=== PATIENT | female | born 1960 | race Caucasian/White ===

== ENCOUNTER 2016-11-29 06:12 | Inpatient (IN) | payer OTHER ==
[~2016-11-29 06:12] MED LIST: MORPHINE SULFATE 15 MG TABLET.SA PO PRN; RINGER'S SOLUTION,LACTATED 1,000 ML IV PRN; ROPIVACAINE HCL/PF 100 MG, EPINEPHrine 0.2 MG, KETOROLAC TROMETHAMINE 30 MG in NORMAL S... IJ PRN; TRANEXAMIC ACID 1,000 MG in NORMAL SALINE 100 ML IV PRN; ceFAZolin SODIUM 1 GM VIAL IV PRN
[2016-11-29] MEDS ORDERED: RINGER'S SOLUTION,LACTATED 1,000 ML IV ONE ×3 (08:00→10:25)
[2016-11-29] MEDS ORDERED: MAG HYDROX/ALUMINUM HYD/SIMETH 30 ML UDC PO PRN (09:50)
[2016-11-29] MEDS ORDERED: ONDANSETRON HCL/PF 2 MG/ML VIAL IV PRN (09:50)
[2016-11-29] MEDS ORDERED: diphenhydrAMINE HCL 50 MG/ML VIAL IV PRN (09:50)
[2016-11-29] MEDS ORDERED: PROMETHAZINE HCL 5 MG in DEXTROSE 5 % IN WATER 50 ML IV PRN ×2 (09:50)
[2016-11-29] MEDS ORDERED: MAGNESIUM HYDROXIDE 30 ML UDC PO PRN (09:50)
[2016-11-29] MEDS ORDERED: ACETAMINOPHEN 500 MG TABLET PO PRN (09:50)
[2016-11-29] MEDS ORDERED: ZOLPIDEM TARTRATE 5 MG TABLET PO PRN (09:50)
[2016-11-29] MEDS ORDERED: ALPRAZolam 0.5 MG TABLET PO PRN (09:53)
--- NOTE | 2016-11-29 10:01 | OR ---
Operative Report - Dictated Report Narrative: Date: 11/29/2016 Preoperative diagnosis: Right Knee degenerative joint disease. Postoperative diagnosis: Right Knee degenerative joint disease. Procedure: Right Total knee arthroplasty. Surgeon: Kevin Duong M.D. Technical Planner: Dionicio Arnold PA-C Anesthesia: Spinal with regional block and local periarticular joint injection. Complications: None Specimens: Bone for disposal. Estimated blood loss: Minimal. Tourniquet time: 85 Minutes at 350 millimeters of mercury. Retained implants: Depuy Attune size 6 right lugged cemented posterior stabilized femoral component. Size 6 fixed-bearing cemented tibial platform. 6 by 5 millimeter posterior stabilized cross-linked tibial insert. 38 millimeter medialized patella button. Indications: Ms. Valencia is a 56-year-old female who has advanced bilateral knee arthrosis undergoing staged bilateral total knee arthroplasty. She is here today for her right knee she's been doing with prolonged period of time. This patient was followed in my clinic for period of time with significant complaints of right knee pain consistent with arthritic changes. She had failed conservative measures including, but not limited to, activity modification, passage of time, medications, and other conservative measures. Patient wished to proceed with surgical treatment. The risks, benefits, and alternatives were discussed in clinic. The risks of , blood clots, bleeding, infection, nerve/tendon blood vessel/ injury, malposition of components, intraoperative fracture, postoperative limited range of motion, persistent pain, failure of components, and need for additional procedures. Patient wished to proceed consent was obtained after answering all questions. Procedure: After marking the correct extremity on the floor, the patient was taken to the operating room. A timeout was performed. IV antibiotics consisting of Ancef were administered prior to the procedure. A regional followed by spinal anesthetic was induced by anesthesia, per my request, on the operative table with all bony prominences well-padded. Griffin catheter was placed, and a bump was placed under the operative side buttock. SCDs and JUSTUS hose were utilized on the nonoperative leg. A well-padded tourniquet was applied to the operative thigh. The operative leg was then pre-scrubbed with alcoho,l prepped, and draped in a standard sterile fashion. After exsanguinating the extremity with an Esmarch bandage, the tourniquet was inflated. After marking out the anterior knee for standard incision centered over the patella, the skin was incised and dissected down to the joint retinaculum. The joint retinaculum was marked out as well as the horizontal axis of the patella, and a standard medial parapatellar arthrotomy was then made. The most proximal aspect of the quadriceps tendon and the patella tendon insertion were protected from release. A partial synovectomy was performed as well as a resection of the infrapatellar fat pad. The distal femoral fat pad proximal to the trochlea was also resected using cautery. The soft tissues were elevated off the medial aspect of the proximal tibia using a Juarez elevator ensuring that we did not transect the medial collateral ligament. Upon initial evaluation range of motion was approximately 0 degrees to 130 degrees of flexion. There were signs of advanced arthrosis in the medial, lateral, and patellofemoral joint spaces. There were large marginal osteophytes which were removed with a rongeur. The knee was hyperflexed and the patella was tucked laterally. Protecting the surrounding soft tissues with Homans, an entry drill was placed down the femoral canal using Whitesides line for guidance into the entry point. The intramedullary femoral alignment kenan was utilized in order to cut the distal femur in 5 degrees of valgus resecting 10 millimeters of bone. Next the distal femur was sized to a size 6. A posterior referencing guide was utilized to place the distal femoral cutting block in 3 degrees of external rotation. This was pinned into place. The rotation was confirmed both visually and based on anatomic landmarks. The 4 in 1 cutting jig of the appropriate size was utilized in order to make all bony cuts. The angle wing was used to ensure no notching. Retractors were utilized in order to protect surrounding soft tissues. This cut did not result in any excessive notching. We then cut the box centered over the distal femur. This allowed for resection of the anterior and posterior cruciate ligaments. I then turned my attention to the preparation of the tibia. Using an extra medullary tibial alignment kenan, 2 millimeters of bone was resected off the medial articular surface. This was made perpendicular to the mechanical axis of the joint with the alignment kenan centered over the ankle mortise. The alignment kenan was checked and was noted to be parallel to the mechanical axis, centered over the medial one third of the tibial tubercle, paralleling the anterior surface of the tibia. We then turned our attention to the remaining meniscus and soft tissues. These were removed while protecting the surrounding ligaments and soft tissues. The marginal osteophytes off the anterior, posterior, medial, lateral aspects of the femur and tibia were removed. The tibia was sized out to a size 6. Next the tibia was drilled and punched in an externally rotated position. Next the trial femur and a series of tibial inserts were utilized in order to allow for full extension and maximal flexion. It was found that a 5 millimeter insert gave the best range of motion and stability at multiple flexion points as well as at full extension there was less than 2 mm of gapping both medially and laterally. There is minimal anterior translation with the knee at 90 degrees of flexion and no signs of being able to dislocate the knee. The patella was then prepared. The initial thickness was 23 millimeters. This was reamed down to 13 millimeters parallel to the anterior surface of the patella. It was sized out to a size 38 medialized patella button. This was then drilled and trialed. Without any medial restraint the patella tracked appropriately and did not sublux or dislocate. At this point, it was felt these were the appropriate sized implants, and all trials were removed. The standard periarticular joint injection consisting of ropivacaine, Toradol, and epinephrine were injected into the periarticular joint tissues. The bony surfaces were thoroughly irrigated with a pulsatile- suction saline irrigation device. A bone plug from the prior resected anterior chamfer cut was placed into the drill hole at the distal femur. The bony surfaces were then dried in preparation for placement of the implants. The cement was vacuum mixed per the dental chairside assistant's instructions. The cement was placed on the dry bony surfaces and posterior aspect of the implants. The implants were impacted into place, removing all extruded cement. At this point anesthesia administered tranexamic acid per protocol intravenously. The knee was placed in extension with axial loading with the trial insert while the cement cured. Once the cement cured, all remaining extruded cement was removed. The knee was placed through a range of motion with the trial insert to ensure appropriate range of motion and stability. Final range of motion was approximately 0 to 130 degrees. The knee was again thoroughly irrigated with pulsatile saline lavage. The final polyethylene insert was then impacted into place ensuring no retained soft tissues. The remaining periarticular joint injection was injected. A medium Hemovac drain was placed exiting superior laterally. The knee was then placed over a triangle and the arthrotomy was closed with interrupted #1 Vicryl after thoroughly irrigating the joint. The deep and subcutaneous tissues were closed with interrupted oh and 3-0 Vicryl respectively. Skin was closed with a running subcutaneous 3-0 Monocryl and Prineo Dermabond dressing. 4 x 4's, Sof-Rol, and a full leg Geoff wrap were applied. All sponge, needle, blade, and instrument counts were correct prior to closing the wounds. Postoperative condition: The patient was awoken and transferred to the postanesthesia care unit in stable condition. Plan is to be admitted to the inpatient medical/surgical floor postoperatively for 24 hours of IV antibiotics , physical therapy, occupational therapy, and medical comanagement. Patient will be weightbearing as tolerated with range of motion as tolerated. DVT prophylaxis will be with SCDs, JUSTUS hose, and pharmacological anticoagulation. Anticipated hospital stay is approximately 2-4 days.
--- NOTE | 2016-11-29 10:29 | OR ---
Anesthesia Procedure Note - Anesthesia Procedure Note Narrative: Vital Signs - Last Taken Temp 36.6 C 11/29/16 10:15 Pulse 54 L 11/29/16 10:20 Resp 16 11/29/16 10:20 BP 106/50 11/29/16 10:20 Pulse Ox 97 11/29/16 10:20 O2 Oxygen Delivery Method Nasal Cannula 11/29/16 10:26 ANESTHESIA PROCEDURE NOTE Date of procedure: 11/29/2016. Time of procedure: . Performed by: Shine Landa CRNA Paint Dipper: Delilah Villegas RN . Preprocedure diagnosis: Right knee degenerative disc disease. Femoral block for postop analgesia.. Post procedure diagnosis: Same. Procedure: Right femoral nerve block Indications: Postoperative analgesia. Findings: Patient brought to operating room #4 placed in supine position. Patient was sedated. One mL of 1% Xylocaine was injected in the tissue over the femoral artery. Ultrasound-guided right femoral nerve block performed with a 22-gauge Stimuplex regional block needle. ChloraPrep was utilized sterilize right femoral area. A total of 30 mL of 0.25% Marcaine with epinephrine 1 200, 000 was injected. Images retained and radiology database. Needle was removed intact. EBL: Minimal. Fluids: N/A. Specimen: N/A. Post procedure condition: The patient tolerated the procedure well. No complications were noted. Thank you for this consultation Shine Landa CRNA
[2016-11-29] MEDS: KETOROLAC TROMETHAMINE 15 MG/ML VIAL IV SCH ×3 (11:00→23:11)
[2016-11-29] MEDS: DEXTROSE 5%-LACTATED RINGERS 1,000 ML IV PRN ×2 (11:02→19:02)
[2016-11-29] MEDS: ceFAZolin SODIUM 1 GM in DEXTROSE 5 % IN WATER 100 ML IV SCH ×6 (12:43→23:10)
[2016-11-29] MEDS: oxyCODONE HCL/ACETAMINOPHEN 1 TAB TABLET PO PRN ×2 (13:23→17:47)
[2016-11-29] MEDS: traZODone HCL 50 MG TABLET PO SCH (21:08)
[2016-11-29] MEDS: MORPHINE SULFATE 15 MG TABLET.SA PO SCH (21:08)
[2016-11-29] MEDS: SENNOSIDES/DOCUSATE SODIUM 1 TAB TABLET PO SCH (21:09)
[2016-11-29] MEDS: FLUoxetine HCL 10 MG CAPSULE PO SCH (21:16)
[2016-11-29] MEDS: METOPROLOL TARTRATE 50 MG TABLET PO SCH (21:17)
[2016-11-29] MEDS: LISINOPRIL 20 MG TABLET PO SCH (21:17)
[2016-11-30] MEDS: DEXTROSE 5%-LACTATED RINGERS 1,000 ML IV PRN (03:54)
[2016-11-30] MEDS: KETOROLAC TROMETHAMINE 15 MG/ML VIAL IV SCH ×4 (03:54→21:01)
[2016-11-30 06:02] LABS: Hematocrit 32.5 % (37.0-47.0); Hemoglobin 10.2 gm/dL (12.5-16.0); Mean Cell Volume 94.8 fl (78-100); Mean Corpuscular Hemoglobin 29.7 pg (27-31); Mean Corpuscular Hgb Conc 31.4 g/dl (32-36); Mean Platelet Volume 8.2 fl (6.0-9.5); Platelet Count 170 K/mm3 (150-450); Red Blood Count 3.43 M/mm3 (4.2-5.4); Red Cell Distribution Width 12.5 % (11.5-14.0); White Blood Count 9.1 K/mm3 (4.0-10.5)
[2016-11-30 06:13] LABS: Anion Gap 5.8 mmol/L (6.8-13.8); BUN/Creatinine Ratio 17.2 (9.0-21.6); Carbon Dioxide 32.3 mmol/L (24-32.6); Estimated Creat Clear 79.7; Potassium 4.1 mmol/L (3.4-4.6)
[2016-11-30] MEDS: oxyCODONE HCL/ACETAMINOPHEN 1 TAB TABLET PO PRN ×3 (06:53→22:05)
[2016-11-30] MEDS: LEVOTHYROXINE SODIUM 175 MCG TABLET PO SCH (07:01)
--- NOTE | 2016-11-30 07:59 | PN ---
Subjective - Date and Time Seen Date: 11/30/16 Time: 07:55 Subjective Narrative: Subjective: Reports no concerns or pain. Was able to walk in the [place] with therapy. Pain is well-controlled. Voiding without any complications. Tolerating by mouth intake. Denies any nausea or vomiting. Denies calf pain. Slept well. Physical exam: Alert and oriented to person, place and time Right lower Extremity: Palpable dorsalis pedis pulse. Sensation grossly intact to light touch. Dressings clean and dry. Able to flex and extend ankle and toes. No excessive drainage. Calf and thigh are soft and nontender. Assessment: Postop day 1 status post right total knee arthroplasty. Plan: Continue with physical and occupational therapy weightbearing as tolerated. Continue with anticoagulation. 24 hours postoperative prophylactic antibiotics. Pain control with goal to rely on oral medications. Continue bowel regimen. Will need 6 weeks with walker or assitive device to protect joint while ambulating during the recovery process. Plan to proceed with left total knee arthroplasty tomorrow. Discontinue drain. Repeat labs in a.m. Objective - Vitals Vitals: Last Vital Signs Temp 36.5 C 11/29/16 22:42 Pulse 58 L 11/30/16 00:45 Resp 18 11/30/16 00:45 BP 87/40 11/30/16 00:35 Pulse Ox 97 11/30/16 00:45 - Abnormal Lab Findings Abnormal Lab Findings: Abnormal Lab Results 11/30/16 11/30/16 Range/Units 05:55 05:55 RBC 3.43 L (4.2-5.4) M/mm3 Hgb 10.2 L (12.5-16.0) gm/dL Hct 32.5 L (37.0-47.0) % MCHC 31.4 L (32-36) g/dl Anion Gap 5.8 L (6.8-13.8) mmol/L - Exam Constitutional: Present: Alert, Oriented x3 Cauti Physician Documentation - Urinary Catheter Management Urethral (Griffin) Urethral Indwelling: Yes Reason for Continuing Indwelling Catheter: Surgical Procedure Date of Insertion: 11/29/16 Time of Insertion: 08:00 Assessment/Plan - Problems/Diagnosis (1) Acute blood loss anemia Problem: Acute (2) Status post total right knee replacement Problem: Acute (3) Anxiety Problem: Chronic (4) CAD (coronary artery disease) Problem: Chronic (5) Hypothyroid Problem: Chronic (6) Impaired fasting glucose Problem: Chronic (7) GERD (gastroesophageal reflux disease) Problem: Chronic (8) Hypertension Problem: Chronic (9) B12 deficiency Problem: Chronic (10) Sleep apnea Problem: Chronic (11) Factor V Leiden Problem: Chronic (12) Hyperlipidemia Problem: Chronic
[2016-11-30] MEDS ORDERED: ceFAZolin SODIUM 1 GM VIAL IV PRN (08:22)
[2016-11-30] MEDS: ENOXAPARIN SODIUM 40 MG/0.4 ML SYRG SC SCH (08:45)
[2016-11-30] MEDS: LACTOBACILLUS ACIDOPHILUS 100 CAP BTL PO SCH (08:56)
[2016-11-30] MEDS: OMEGA-3 FATTY ACIDS 1 CAP CAPSULE PO SCH (08:57)
[2016-11-30] MEDS: CALCIUM CARBONATE/VITAMIN D3 1 TAB TABLET PO SCH (08:57)
[2016-11-30] MEDS ORDERED: CALCIUM CARBONATE PO SCH (09:00)
[2016-11-30] MEDS ORDERED: [UNRECOGNIZED DRUG - OTHER] PO SCH (09:00)
[2016-11-30] MEDS ORDERED: VITAMIN D3 PO SCH (09:00)
[2016-11-30] MEDS: HYDROCHLOROTHIAZIDE 25 MG TABLET PO SCH (09:05)
[2016-11-30] MEDS: MORPHINE SULFATE 15 MG TABLET.SA PO SCH ×2 (09:05→20:45)
[2016-11-30] MEDS: METOPROLOL TARTRATE 50 MG TABLET PO SCH ×2 (09:05→20:47)
[2016-11-30] MEDS: LISINOPRIL 20 MG TABLET PO SCH ×2 (09:05→20:51)
[2016-11-30] MEDS: FLUoxetine HCL 10 MG CAPSULE PO SCH (20:46)
[2016-11-30] MEDS: traZODone HCL 50 MG TABLET PO SCH (20:46)
[2016-11-30] MEDS: SENNOSIDES/DOCUSATE SODIUM 1 TAB TABLET PO SCH (20:46)
[2016-12-01] MEDS: KETOROLAC TROMETHAMINE 15 MG/ML VIAL IV SCH ×4 (03:25→21:50)
[2016-12-01] MEDS ORDERED: ROPIVACAINE HCL/PF 100 MG, EPINEPHrine 0.2 MG, KETOROLAC TROMETHAMINE 30 MG in NORMAL S... IJ PRN (06:00)
[2016-12-01] MEDS ORDERED: RINGER'S SOLUTION,LACTATED 1,000 ML IV PRN (06:00)
[2016-12-01] MEDS ORDERED: ceFAZolin SODIUM 1 GM VIAL IV PRN (06:00)
[2016-12-01] MEDS ORDERED: MORPHINE SULFATE 15 MG TABLET.SA PO PRN (06:00)
[2016-12-01 06:02] LABS: Hematocrit 32.1 % (37.0-47.0); Hemoglobin 10.2 gm/dL (12.5-16.0); Mean Cell Volume 94.4 fl (78-100); Mean Corpuscular Hgb Conc 31.8 g/dl (32-36); Mean Platelet Volume 9.4 fl (6.0-9.5); Platelet Count 190 K/mm3 (150-450); Red Cell Distribution Width 12.5 % (11.5-14.0); White Blood Count 8.3 K/mm3 (4.0-10.5)
[2016-12-01 06:05] LABS: Anion Gap 5.9 mmol/L (6.8-13.8); BUN/Creatinine Ratio 15.3 (9.0-21.6); Calcium * 8.3 mg/dL (7.9-10.9); Carbon Dioxide 33.5 mmol/L (24-32.6); Estimated Creat Clear 81.6; Potassium 4.4 mmol/L (3.4-4.6)
[2016-12-01] MEDS: LEVOTHYROXINE SODIUM 175 MCG TABLET PO SCH (07:04)
[2016-12-01] MEDS ORDERED: RINGER'S SOLUTION,LACTATED 1,000 ML IV ONE ×3 (08:43→10:00)
[2016-12-01] MEDS: TRANEXAMIC ACID 1,000 MG in NORMAL SALINE 100 ML IV PRN ×2 (08:43→09:10)
[2016-12-01] MEDS ORDERED: HYDROmorphone HCL 2 MG/ML VIAL IV ONE (08:50)
--- NOTE | 2016-12-01 09:58 | OR ---
Operative Report - Dictated Report Narrative: Date: 12/01/2016 Preoperative diagnosis: Left Knee degenerative joint disease. Postoperative diagnosis: Left Knee degenerative joint disease. Procedure: Left Total knee arthroplasty. Surgeon: Kevin Duong M.D. Phlebotomy Program Coordinator: Dionicio Arnold PA-C Anesthesia: Spinal with regional block and local periarticular joint injection. Complications: None Specimens: Bone for disposal. Estimated blood loss: Minimal. Tourniquet time: 80 Minutes at 350 millimeters of mercury. Retained implants: Depuy Attune size 7 left lugged cemented posterior stabilized femoral component. Size 6 fixed-bearing cemented tibial platform. 7 by 7 millimeter posterior stabilized cross-linked tibial insert. 38 millimeter medialized patella button. Indications: Ms. Valencia is a 56-year-old female who presented with a right total knee arthroplasty is here today for her left total knee arthroplasty due to persistent long-standing bilateral knee pain. This patient was followed in my clinic for period of time with significant complaints of left knee pain consistent with arthritic changes. She had failed conservative measures including, but not limited to, activity modification, passage of time, medications, and other conservative measures. Patient wished to proceed with surgical treatment. The risks, benefits, and alternatives were discussed in clinic. The risks of , blood clots, bleeding, infection, nerve/tendon blood vessel/ injury, malposition of components, intraoperative fracture, postoperative limited range of motion, persistent pain, failure of components, and need for additional procedures. Patient wished to proceed consent was obtained after answering all questions. Procedure: After marking the correct extremity on the floor, the patient was taken to the operating room. A timeout was performed. IV antibiotics consisting of Ancef were administered prior to the procedure. A regional followed by spinal anesthetic was induced by anesthesia, per my request, on the operative table with all bony prominences well-padded. Griffin catheter was placed, and a bump was placed under the operative side buttock. SCDs and JUSTUS hose were utilized on the nonoperative leg. A well-padded tourniquet was applied to the operative thigh. The operative leg was then pre-scrubbed with alcoho,l prepped, and draped in a standard sterile fashion. After exsanguinating the extremity with an Esmarch bandage, the tourniquet was inflated. After marking out the anterior knee for standard incision centered over the patella, the skin was incised and dissected down to the joint retinaculum. The joint retinaculum was marked out as well as the horizontal axis of the patella, and a standard medial parapatellar arthrotomy was then made. The most proximal aspect of the quadriceps tendon and the patella tendon insertion were protected from release. A partial synovectomy was performed as well as a resection of the infrapatellar fat pad. The distal femoral fat pad proximal to the trochlea was also resected using cautery. The soft tissues were elevated off the medial aspect of the proximal tibia using a Juarez elevator ensuring that we did not transect the medial collateral ligament. Upon initial evaluation range of motion was approximately 0 degrees to 130 degrees of flexion. There were signs of advanced arthrosis in the medial, lateral, and patellofemoral joint spaces. There were large marginal osteophytes which were removed with a rongeur. The knee was hyperflexed and the patella was tucked laterally. Protecting the surrounding soft tissues with Homans, an entry drill was placed down the femoral canal using Whitesides line for guidance into the entry point. The intramedullary femoral alignment kenan was utilized in order to cut the distal femur in 5 degrees of valgus resecting 10 millimeters of bone. Next the distal femur was sized to a size 7. A posterior referencing guide was utilized to place the distal femoral cutting block in 3 degrees of external rotation. This was pinned into place. The rotation was confirmed both visually and based on anatomic landmarks. The 4 in 1 cutting jig of the appropriate size was utilized in order to make all bony cuts. The angle wing was used to ensure no notching. Retractors were utilized in order to protect surrounding soft tissues. This cut did not result in any excessive notching. We then cut the box centered over the distal femur. This allowed for resection of the anterior and posterior cruciate ligaments. I then turned my attention to the preparation of the tibia. Using an extra medullary tibial alignment kenan, 2 millimeters of bone was resected off the medial articular surface. This was made perpendicular to the mechanical axis of the joint with the alignment kenan centered over the ankle mortise. The alignment kenan was checked and was noted to be parallel to the mechanical axis, centered over the medial one third of the tibial tubercle, paralleling the anterior surface of the tibia. We then turned our attention to the remaining meniscus and soft tissues. These were removed while protecting the surrounding ligaments and soft tissues. The marginal osteophytes off the anterior, posterior, medial, lateral aspects of the femur and tibia were removed. The tibia was sized out to a size 6. Next the tibia was drilled and punched in an externally rotated position. Next the trial femur and a series of tibial inserts were utilized in order to allow for full extension and maximal flexion. It was found that a 7 millimeter insert gave the best range of motion and stability at multiple flexion points as well as at full extension there was less than 2 mm of gapping both medially and laterally. There is minimal anterior translation with the knee at 90 degrees of flexion and no signs of being able to dislocate the knee. The patella was then prepared. The initial thickness was 23 millimeters. This was reamed down to 13 millimeters parallel to the anterior surface of the patella. It was sized out to a size 38 medialized patella button. This was then drilled and trialed. Without any medial restraint the patella tracked appropriately and did not sublux or dislocate. At this point, it was felt these were the appropriate sized implants, and all trials were removed. The standard periarticular joint injection consisting of ropivacaine, Toradol, and epinephrine were injected into the periarticular joint tissues. The bony surfaces were thoroughly irrigated with a pulsatile- suction saline irrigation device. A bone plug from the prior resected anterior chamfer cut was placed into the drill hole at the distal femur. The bony surfaces were then dried in preparation for placement of the implants. The cement was vacuum mixed per the grinding machine operator's instructions. The cement was placed on the dry bony surfaces and posterior aspect of the implants. The implants were impacted into place, removing all extruded cement. At this point anesthesia administered tranexamic acid per protocol intravenously. The knee was placed in extension with axial loading with the trial insert while the cement cured. Once the cement cured, all remaining extruded cement was removed. The knee was placed through a range of motion with the trial insert to ensure appropriate range of motion and stability. Final range of motion was approximately 0 to 130 degrees. The knee was again thoroughly irrigated with pulsatile saline lavage. The final polyethylene insert was then impacted into place ensuring no retained soft tissues. The remaining periarticular joint injection was injected. A medium Hemovac drain was placed exiting superior laterally. The knee was then placed over a triangle and the arthrotomy was closed with interrupted #1 Vicryl after thoroughly irrigating the joint. The deep and subcutaneous tissues were closed with interrupted oh and 3-0 Vicryl respectively. Skin was closed with a running subcutaneous 3-0 Monocryl and Prineo Dermabond dressing. 4 x 4's, Sof-Rol, and a full leg Geoff wrap were applied. All sponge, needle, blade, and instrument counts were correct prior to closing the wounds. Postoperative condition: The patient was awoken and transferred to the postanesthesia care unit in stable condition. Plan is to be admitted to the inpatient medical/surgical floor postoperatively for 24 hours of IV antibiotics , physical therapy, occupational therapy, and medical comanagement. Patient will be weightbearing as tolerated with range of motion as tolerated. DVT prophylaxis will be with SCDs, JUSTUS hose, and pharmacological anticoagulation. Anticipated hospital stay is approximately 2-4 days.
--- NOTE | 2016-12-01 10:14 | OR ---
Anesthesia Procedure Note - Anesthesia Procedure Note Date of Service: 12/01/16 Narrative: Vital Signs - Last Taken Temp 36.7 C 12/01/16 08:47 Pulse 52 L 12/01/16 08:47 Resp 18 12/01/16 08:47 BP 99/53 12/01/16 08:47 Pulse Ox 100 12/01/16 08:47 O2 Oxygen Delivery Method Room Air 12/01/16 10:12 ANESTHESIA PROCEDURE NOTE Date of Procedure: 12/01/2016. Time of procedure: 744. Performed by: Polo Diaz CRNA Oil Rig Driller: None. Preprocedure diagnosis: Left knee degenerative joint disease, left total knee arthroplasty. Post procedure diagnosis: Same. Procedure: Left ultrasound guided femoral block for postop analgesia. Indications: The patient is a 56 -year-old female. Findings: See below. Details of the procedure: The tissue over the intended target site was cleansed with ChloraPrep. 1 ml lidocaine 1% was injected to the skin and subcutaneous tissue. Under sterile technique and ultrasound guidance a 21-gauge block needle was inserted to the left femoral nerve. 30 mL's of 0.5% bupivacaine plus epinephrine 1 200,000 was injected after negative aspiration for blood. Spread of local anesthetic around the femoral nerve was observed throughout the injection. The needle was removed intact. No complications were noted. The images were retained in the Hospital medical database . EBL: Minimal. Fluids: N/A. Specimen: N/A. Post procedure condition: The patient tolerated the procedure well. No complications were noted. Thank you for this consultation. Polo Diaz CRNA
[2016-12-01] MEDS: MORPHINE SULFATE 15 MG TABLET.SA PO SCH ×2 (10:55→20:31)
[2016-12-01] MEDS: DEXTROSE 5%-LACTATED RINGERS 1,000 ML IV PRN ×2 (11:31→20:41)
[2016-12-01] MEDS: HYDROmorphone HCL 1 MG/ML DISP.SYRIN IV PRN ×3 (11:38→21:50)
[2016-12-01] MEDS: ceFAZolin SODIUM 1 GM in DEXTROSE 5 % IN WATER 100 ML IV SCH ×6 (11:49→23:02)
[2016-12-01] MEDS: ENOXAPARIN SODIUM 40 MG/0.4 ML SYRG SC SCH (12:53)
[2016-12-01] MEDS: OMEGA-3 FATTY ACIDS 1 CAP CAPSULE PO SCH (13:06)
[2016-12-01] MEDS: CALCIUM CARBONATE/VITAMIN D3 1 TAB TABLET PO SCH (13:06)
[2016-12-01] MEDS: METOPROLOL TARTRATE 50 MG TABLET PO SCH ×2 (13:07→20:09)
[2016-12-01] MEDS: LISINOPRIL 20 MG TABLET PO SCH ×2 (13:07→20:09)
[2016-12-01] MEDS: LACTOBACILLUS ACIDOPHILUS 100 CAP BTL PO SCH (13:08)
[2016-12-01] MEDS: HYDROCHLOROTHIAZIDE 25 MG TABLET PO SCH (13:08)
[2016-12-01] MEDS: SENNOSIDES/DOCUSATE SODIUM 1 TAB TABLET PO SCH (20:09)
[2016-12-01] MEDS: FLUoxetine HCL 10 MG CAPSULE PO SCH (20:09)
[2016-12-01] MEDS: traZODone HCL 50 MG TABLET PO SCH (20:16)
[2016-12-01] MEDS: oxyCODONE HCL/ACETAMINOPHEN 1 TAB TABLET PO PRN (22:31)
[2016-12-02] MEDS: KETOROLAC TROMETHAMINE 15 MG/ML VIAL IV SCH ×4 (03:11→23:01)
[2016-12-02] MEDS: oxyCODONE HCL/ACETAMINOPHEN 1 TAB TABLET PO PRN ×5 (03:11→20:36)
[2016-12-02 05:58] LABS: Hematocrit 28.2 % (37.0-47.0); Mean Cell Volume 95.6 fl (78-100); Mean Corpuscular Hemoglobin 30.5 pg (27-31); Mean Corpuscular Hgb Conc 31.9 g/dl (32-36); Mean Platelet Volume 9.4 fl (6.0-9.5); Platelet Count 195 K/mm3 (150-450); Red Blood Count 2.95 M/mm3 (4.2-5.4); Red Cell Distribution Width 12.4 % (11.5-14.0)
[2016-12-02 06:10] LABS: Anion Gap 7.6 mmol/L (6.8-13.8); BUN/Creatinine Ratio 13.7 (9.0-21.6); Carbon Dioxide 31.4 mmol/L (24-32.6)
[2016-12-02] MEDS: LEVOTHYROXINE SODIUM 175 MCG TABLET PO SCH (07:12)
[2016-12-02] MEDS: DEXTROSE 5%-LACTATED RINGERS 1,000 ML IV PRN (07:54)
--- NOTE | 2016-12-02 08:05 | PN ---
Subjective - Date and Time Seen Date: 12/02/16 Time: 08:03 Subjective Narrative: Subjective: She reports cramping last night. She has some weakness and lightheadedness she stood up today. She states her pain is somewhat worse than preop. Voiding without any complications. Tolerating by mouth intake. Denies any nausea or vomiting. Denies calf pain. Physical exam: Alert and oriented to person, place and time Left lower extremity: Drain in place, palpable dorsalis pedis pulse, sensation is intact light touch, dressings are clean and dry, able to flex and extend the ankles and toes, calf is soft. Right lower Extremity: Palpable dorsalis pedis pulse. Sensation grossly intact to light touch. Dressings clean and dry. Able to flex and extend ankle and toes. No excessive drainage. Calf and thigh are soft and nontender. Assessment: Postop day 3 status post right total knee arthroplasty, postop day 1 status post left total knee arthroplasty. Plan: Continue with physical and occupational therapy weightbearing as tolerated. Continue with anticoagulation. 24 hours postoperative prophylactic antibiotics. Pain control with goal to rely on oral medications. Continue bowel regimen. Will need 6 weeks with walker or assitive device to protect joint while ambulating during the recovery process. We will hold her blood pressure medications that she is hypotensive this morning. We also discussed that her hemoglobin is an acceptable level but if she continues to have lightheadedness we will consider transfusion. She was restarted on fluids in order to assist with her fluid load. Discontinue drain. Repeat labs in a.m. Objective - Vitals Vitals: Last Vital Signs Temp 36.7 C 12/02/16 06:49 Pulse 51 L 12/02/16 06:49 Resp 18 12/02/16 06:49 BP 88/38 12/02/16 06:49 Pulse Ox 96 12/02/16 06:49 - Abnormal Lab Findings Abnormal Lab Findings: Abnormal Lab Results 12/02/16 12/02/16 Range/Units 05:49 05:49 RBC 2.95 L (4.2-5.4) M/mm3 Hgb 9.0 L (12.5-16.0) gm/dL Hct 28.2 L (37.0-47.0) % MCHC 31.9 L (32-36) g/dl Est GFR (Non-Af Amer) 59 L (60-130) mL/min [facility] Physician Documentation - Urinary Catheter Management Urethral (Griffin) Urethral Indwelling: Yes Date of Insertion: 11/29/16 Time of Insertion: 08:00 Date of Removal: 12/02/16 Time of Removal: 07:15 Assessment/Plan - Problems/Diagnosis (1) Acute blood loss anemia Problem: Acute (2) Status post total right knee replacement Problem: Acute (3) Anxiety Problem: Chronic (4) CAD (coronary artery disease) Problem: Chronic (5) Hypothyroid Problem: Chronic (6) Impaired fasting glucose Problem: Chronic (7) GERD (gastroesophageal reflux disease) Problem: Chronic (8) Hypertension Problem: Chronic (9) B12 deficiency Problem: Chronic (10) Sleep apnea Problem: Chronic (11) Factor V Leiden Problem: Chronic (12) Hyperlipidemia Problem: Chronic
[2016-12-02] MEDS: HYDROCHLOROTHIAZIDE 25 MG TABLET PO SCH (08:49)
[2016-12-02] MEDS: LACTOBACILLUS ACIDOPHILUS 100 CAP BTL PO SCH (08:49)
[2016-12-02] MEDS: MORPHINE SULFATE 15 MG TABLET.SA PO SCH ×2 (08:49→20:34)
[2016-12-02] MEDS: CALCIUM CARBONATE/VITAMIN D3 1 TAB TABLET PO SCH (08:49)
[2016-12-02] MEDS: OMEGA-3 FATTY ACIDS 1 CAP CAPSULE PO SCH (08:50)
[2016-12-02] MEDS: LISINOPRIL 20 MG TABLET PO SCH ×2 (08:50→20:31)
[2016-12-02] MEDS: ENOXAPARIN SODIUM 40 MG/0.4 ML SYRG SC SCH (08:51)
[2016-12-02] MEDS: HYDROmorphone HCL 1 MG/ML DISP.SYRIN IV PRN ×2 (10:16→14:36)
[2016-12-02] MEDS: SENNOSIDES/DOCUSATE SODIUM 1 TAB TABLET PO SCH (20:31)
[2016-12-02] MEDS: traZODone HCL 50 MG TABLET PO SCH (20:31)
[2016-12-02] MEDS: FLUoxetine HCL 10 MG CAPSULE PO SCH (20:32)
[2016-12-02] MEDS: METOPROLOL TARTRATE 50 MG TABLET PO SCH (23:00)
[2016-12-03] MEDS: KETOROLAC TROMETHAMINE 15 MG/ML VIAL IV SCH (03:00)
[2016-12-03] MEDS: oxyCODONE HCL/ACETAMINOPHEN 1 TAB TABLET PO PRN ×4 (05:53→20:53)
[2016-12-03 06:14] LABS: Hematocrit 26.7 % (37.0-47.0); Hemoglobin 8.8 gm/dL (12.5-16.0); Mean Cell Volume 94.3 fl (78-100); Mean Corpuscular Hemoglobin 31.1 pg (27-31); Mean Platelet Volume 9.5 fl (6.0-9.5); Platelet Count 190 K/mm3 (150-450); Red Blood Count 2.83 M/mm3 (4.2-5.4); Red Cell Distribution Width 12.6 % (11.5-14.0); White Blood Count 9.9 K/mm3 (4.0-10.5)
[2016-12-03 06:22] LABS: Anion Gap 10.5 mmol/L (6.8-13.8); BUN/Creatinine Ratio 15.2 (9.0-21.6); Calcium * 8.1 mg/dL (7.9-10.9); Carbon Dioxide 29.6 mmol/L (24-32.6); Estimated Creat Clear 87.8; Potassium 4.1 mmol/L (3.4-4.6)
[2016-12-03] MEDS: LEVOTHYROXINE SODIUM 175 MCG TABLET PO SCH (07:24)
[2016-12-03] MEDS: ENOXAPARIN SODIUM 40 MG/0.4 ML SYRG SC SCH (10:08)
[2016-12-03] MEDS: MORPHINE SULFATE 15 MG TABLET.SA PO SCH ×2 (10:08→20:49)
[2016-12-03] MEDS: LISINOPRIL 20 MG TABLET PO SCH ×2 (10:08→20:50)
[2016-12-03] MEDS: LACTOBACILLUS ACIDOPHILUS 100 CAP BTL PO SCH (10:08)
[2016-12-03] MEDS: CALCIUM CARBONATE/VITAMIN D3 1 TAB TABLET PO SCH (10:09)
[2016-12-03] MEDS: HYDROCHLOROTHIAZIDE 25 MG TABLET PO SCH (10:09)
[2016-12-03] MEDS: OMEGA-3 FATTY ACIDS 1 CAP CAPSULE PO SCH (10:09)
[2016-12-03] MEDS: METOPROLOL TARTRATE 50 MG TABLET PO SCH ×2 (10:09→20:50)
[2016-12-03] MEDS: HYDROmorphone HCL 1 MG/ML DISP.SYRIN IV PRN ×2 (14:28→17:33)
--- NOTE | 2016-12-03 15:17 | PN ---
Subjective - Date and Time Seen Date: 12/03/16 Time: 15:15 Subjective Narrative: Subjective: She reports doing better yesterday afternoon and last night. She was able to ambulate in the room with PT. Has not been in the [place] or stairs yet. Voiding without any complications. Tolerating by mouth intake. Denies any nausea or vomiting. Denies calf pain. Physical exam: Alert and oriented to person, place and time Left lower extremity: Drain in place, palpable dorsalis pedis pulse, sensation is intact light touch, dressings are clean and dry, able to flex and extend the ankles and toes, calf is soft. Right lower Extremity: Palpable dorsalis pedis pulse. Sensation grossly intact to light touch. Dressings clean and dry. Able to flex and extend ankle and toes. No excessive drainage. Calf and thigh are soft and nontender. Assessment: Postop day 4 status post right total knee arthroplasty, postop day 2 status post left total knee arthroplasty. Plan: Continue with physical and occupational therapy weightbearing as tolerated. Continue with anticoagulation. Pain control with goal to rely on oral medications. Continue bowel regimen. Will need 6 weeks with walker or assitive device to protect joint while ambulating during the recovery process. Continue PT - likely 2-3 more days prior to DC home. Objective - Vitals Vitals: Last Vital Signs Temp 36.3 C L 12/03/16 14:30 Pulse 76 12/03/16 14:30 Resp 20 12/03/16 14:30 BP 129/69 12/03/16 14:30 Pulse Ox 98 12/03/16 14:30 - Abnormal Lab Findings Abnormal Lab Findings: Abnormal Lab Results 12/03/16 Range/Units 05:15 RBC 2.83 L (4.2-5.4) M/mm3 Hgb 8.8 L (12.5-16.0) gm/dL Hct 26.7 L (37.0-47.0) % MCH 31.1 H (27-31) pg [facility] Physician Documentation - Urinary Catheter Management Urethral (Griffin) Urethral Indwelling: Yes Date of Insertion: 11/29/16 Time of Insertion: 08:00 Date of Removal: 12/02/16 Time of Removal: 07:15 Assessment/Plan - Problems/Diagnosis (1) Acute blood loss anemia Problem: Acute (2) Status post total right knee replacement Problem: Acute (3) Anxiety Problem: Chronic (4) CAD (coronary artery disease) Problem: Chronic (5) Hypothyroid Problem: Chronic (6) Impaired fasting glucose Problem: Chronic (7) GERD (gastroesophageal reflux disease) Problem: Chronic (8) Hypertension Problem: Chronic (9) B12 deficiency Problem: Chronic (10) Sleep apnea Problem: Chronic (11) Factor V Leiden Problem: Chronic (12) Hyperlipidemia Problem: Chronic
[2016-12-03] MEDS: SENNOSIDES/DOCUSATE SODIUM 1 TAB TABLET PO SCH (20:50)
[2016-12-03] MEDS: FLUoxetine HCL 10 MG CAPSULE PO SCH (20:50)
[2016-12-03] MEDS: traZODone HCL 50 MG TABLET PO SCH (20:50)
[2016-12-04] MEDS: oxyCODONE HCL/ACETAMINOPHEN 1 TAB TABLET PO PRN ×4 (05:49→21:13)
[2016-12-04] MEDS: LEVOTHYROXINE SODIUM 175 MCG TABLET PO SCH (06:54)
[2016-12-04] MEDS: LACTOBACILLUS ACIDOPHILUS 100 CAP BTL PO SCH (08:39)
[2016-12-04] MEDS: CALCIUM CARBONATE/VITAMIN D3 1 TAB TABLET PO SCH (08:40)
[2016-12-04] MEDS: METOPROLOL TARTRATE 50 MG TABLET PO SCH ×2 (08:40→20:09)
[2016-12-04] MEDS: LISINOPRIL 20 MG TABLET PO SCH ×2 (08:40→20:09)
[2016-12-04] MEDS: OMEGA-3 FATTY ACIDS 1 CAP CAPSULE PO SCH (08:40)
[2016-12-04] MEDS: HYDROCHLOROTHIAZIDE 25 MG TABLET PO SCH (08:41)
[2016-12-04] MEDS: ENOXAPARIN SODIUM 40 MG/0.4 ML SYRG SC SCH (08:42)
[2016-12-04] MEDS: HYDROmorphone HCL 1 MG/ML DISP.SYRIN IV PRN (08:47)
[2016-12-04] MEDS: MORPHINE SULFATE 15 MG TABLET.SA PO SCH ×2 (08:47→20:10)
--- NOTE | 2016-12-04 15:29 | PN ---
Subjective - Date and Time Seen Date: 12/04/16 Time: 15:29 Subjective Narrative: Subjective: She reports doing better with motion and strength today. She was able to ambulate in the [place] [facility] with PT. Has not been on the stairs yet. Voiding without any complications. Tolerating by mouth intake. Denies any nausea or vomiting. Denies calf pain. Physical exam: Alert and oriented to person, place and time Left lower extremity: Drain in place, palpable dorsalis pedis pulse, sensation is intact light touch, dressings are clean and dry, able to flex and extend the ankles and toes, calf is soft. Right lower Extremity: Palpable dorsalis pedis pulse. Sensation grossly intact to light touch. Dressings clean and dry. Able to flex and extend ankle and toes. No excessive drainage. Calf and thigh are soft and nontender. Assessment: Postop day 5 status post right total knee arthroplasty, postop day 3 status post left total knee arthroplasty. Plan: Continue with physical and occupational therapy weightbearing as tolerated. Continue with anticoagulation. Pain control with goal to rely on oral medications. Continue bowel regimen. Will need 6 weeks with walker or assitive device to protect joint while ambulating during the recovery process. Continue PT - likely 1-2 more days prior to DC home. Objective - Vitals Vitals: Last Vital Signs Temp 36.7 C 12/04/16 15:18 Pulse 72 12/04/16 15:18 Resp 18 12/04/16 15:18 BP 112/61 12/04/16 15:18 Pulse Ox 99 12/04/16 15:18 [facility]i Physician Documentation - Urinary Catheter Management Urethral (Griffin) Urethral Indwelling: Yes Date of Insertion: 11/29/16 Time of Insertion: 08:00 Date of Removal: 12/02/16 Time of Removal: 07:15 Assessment/Plan - Problems/Diagnosis (1) Acute blood loss anemia Problem: Acute (2) Status post total right knee replacement Problem: Acute (3) Anxiety Problem: Chronic (4) CAD (coronary artery disease) Problem: Chronic (5) Hypothyroid Problem: Chronic (6) Impaired fasting glucose Problem: Chronic (7) GERD (gastroesophageal reflux disease) Problem: Chronic (8) Hypertension Problem: Chronic (9) B12 deficiency Problem: Chronic (10) Sleep apnea Problem: Chronic (11) Factor V Leiden Problem: Chronic (12) Hyperlipidemia Problem: Chronic
[2016-12-04] MEDS: FLUoxetine HCL 10 MG CAPSULE PO SCH (20:10)
[2016-12-04] MEDS: SENNOSIDES/DOCUSATE SODIUM 1 TAB TABLET PO SCH (20:10)
[2016-12-04] MEDS: traZODone HCL 50 MG TABLET PO SCH (20:10)
[2016-12-05] MEDS: oxyCODONE HCL/ACETAMINOPHEN 1 TAB TABLET PO PRN ×5 (02:42→20:39)
[2016-12-05] MEDS: LEVOTHYROXINE SODIUM 175 MCG TABLET PO SCH (07:05)
[2016-12-05] MEDS: LACTOBACILLUS ACIDOPHILUS 100 CAP BTL PO SCH (08:25)
[2016-12-05] MEDS: MORPHINE SULFATE 15 MG TABLET.SA PO SCH ×2 (08:25→20:46)
[2016-12-05] MEDS: OMEGA-3 FATTY ACIDS 1 CAP CAPSULE PO SCH (08:25)
[2016-12-05] MEDS: CALCIUM CARBONATE/VITAMIN D3 1 TAB TABLET PO SCH (08:25)
[2016-12-05] MEDS: HYDROCHLOROTHIAZIDE 25 MG TABLET PO SCH (08:25)
[2016-12-05] MEDS: LISINOPRIL 20 MG TABLET PO SCH ×2 (08:25→20:41)
[2016-12-05] MEDS: METOPROLOL TARTRATE 50 MG TABLET PO SCH ×2 (08:25→20:40)
[2016-12-05] MEDS: ENOXAPARIN SODIUM 40 MG/0.4 ML SYRG SC SCH (08:27)
--- NOTE | 2016-12-05 12:52 | PN ---
Subjective - Date and Time Seen Date: 12/05/16 Time: 12:51 Subjective Narrative: Subjective: She reports doing better yesterday. She was able to ambulate in the [facility] with PT. Has not been on the stairs yet. Physical exam: Alert and oriented to person, place and time Left lower extremity: palpable dorsalis pedis pulse, sensation is intact light touch, wound benign, able to flex and extend the ankles and toes, calf is soft. Right lower Extremity: Palpable dorsalis pedis pulse. Sensation grossly intact to light touch. Wound benign. Able to flex and extend ankle and toes. No excessive drainage. Calf and thigh are soft and nontender. Assessment: Postop day 6 status post right total knee arthroplasty, postop day 4 status post left total knee arthroplasty. Plan: Continue with physical and occupational therapy weightbearing as tolerated. Continue with anticoagulation. Pain control with goal to rely on oral medications. Continue bowel regimen. Will need 6 weeks with walker or assitive device to protect joint while ambulating during the recovery process. Continue PT - likely arrange tomorrow to [place] home. Objective - Vitals Vitals: Last Vital Signs Temp 36.6 C 12/05/16 11:09 Pulse 78 12/05/16 11:09 Resp 18 12/05/16 11:09 BP 126/64 12/05/16 11:09 Pulse Ox 99 12/05/16 11:09 [facility]auti Physician Documentation - Urinary Catheter Management Urethral (Griffin) Urethral Indwelling: Yes Date of Insertion: 11/29/16 Time of Insertion: 08:00 Date of Removal: 12/02/16 Time of Removal: 07:15 Assessment/Plan - Problems/Diagnosis (1) Acute blood loss anemia Problem: Acute (2) Status post total right knee replacement Problem: Acute (3) Anxiety Problem: Chronic (4) CAD (coronary artery disease) Problem: Chronic (5) Hypothyroid Problem: Chronic (6) Impaired fasting glucose Problem: Chronic (7) GERD (gastroesophageal reflux disease) Problem: Chronic (8) Hypertension Problem: Chronic (9) B12 deficiency Problem: Chronic (10) Sleep apnea Problem: Chronic (11) Factor V Leiden Problem: Chronic (12) Hyperlipidemia Problem: Chronic
[2016-12-05] MEDS: traZODone HCL 50 MG TABLET PO SCH (20:39)
[2016-12-05] MEDS: FLUoxetine HCL 10 MG CAPSULE PO SCH (20:40)
[2016-12-05] MEDS: SENNOSIDES/DOCUSATE SODIUM 1 TAB TABLET PO SCH (20:41)
[2016-12-06] MEDS: oxyCODONE HCL/ACETAMINOPHEN 1 TAB TABLET PO PRN ×3 (01:10→12:23)
[2016-12-06] MEDS: LEVOTHYROXINE SODIUM 175 MCG TABLET PO SCH (07:02)
[2016-12-06] MEDS ORDERED: CYANOCOBALAMIN 1,000 MCG/ML VIAL IJ SCH (09:00)
[2016-12-06] MEDS: CALCIUM CARBONATE/VITAMIN D3 1 TAB TABLET PO SCH (09:32)
[2016-12-06] MEDS: OMEGA-3 FATTY ACIDS 1 CAP CAPSULE PO SCH (09:32)
[2016-12-06] MEDS: HYDROCHLOROTHIAZIDE 25 MG TABLET PO SCH (09:33)
[2016-12-06] MEDS: LISINOPRIL 20 MG TABLET PO SCH (09:33)
[2016-12-06] MEDS: METOPROLOL TARTRATE 50 MG TABLET PO SCH (09:33)
[2016-12-06] MEDS: LACTOBACILLUS ACIDOPHILUS 100 CAP BTL PO SCH (09:34)
[2016-12-06] MEDS: ENOXAPARIN SODIUM 40 MG/0.4 ML SYRG SC SCH (09:34)
[2016-12-06] MEDS: MORPHINE SULFATE 15 MG TABLET.SA PO SCH (09:37)
[2016-12-06 11:04] VITALS: BP 120/57
--- NOTE | 2016-12-06 11:32 | DS ---
(1) Acute blood loss anemia Problem: Acute (2) Status post total right knee replacement Problem: Acute (3) Anxiety Problem: Chronic (4) CAD (coronary artery disease) Problem: Chronic (5) Hypothyroid Problem: Chronic (6) Impaired fasting glucose Problem: Chronic (7) GERD (gastroesophageal reflux disease) Problem: Chronic (8) Hypertension Problem: Chronic (9) B12 deficiency Problem: Chronic (10) Sleep apnea Problem: Chronic (11) Factor V Leiden Problem: Chronic (12) Hyperlipidemia Problem: Chronic Description of Stay: Miss Valencia was admitted to the floor after undergoing staged bilateral total knee arthroplasty. Tolerated this well. After each joint she was admitted to the floor postoperatively for 24 hours of IV antibiotics, pain control, medical comanagement, and occupational and physical therapy. OT and PT were consulted to assist with activities of daily living and ambulation. Was made weightbearing as tolerated with range of motion as tolerated. Pain was initially controlled with IV regimen. This was transitioned to oral once tolerating a by mouth intake. Was resumed on home diet and medications. Had a Griffin catheter inserted and the operating room which was discontinued on postoperative day 1 after her second knee. A drain was placed intraoperatively into the knees which was discontinued on postoperative day 1. Lovenox SCD and JUSTUS hose were utilized for DVT prophylaxis. Vital signs remained stable to the hospital course. Serial labs were obtained which showed a final hemoglobin of 8.8 grams. BMP was reviewed and was stable. Physical examination throughout the hospital course showed an extremity that had sensation that was intact to light touch, palpable pulses, a benign wound, motor intact to the toes, ankle, and knee. Knee range of motion was approximately 0 degrees to 70 degrees. Once an oral pain regimen was tolerated and physical therapy goals were met, it was felt that they were stable for discharge to home. Instructions: Continue with weightbearing as tolerated and range of motion as tolerated. She is okay to shower as long as there is no drainage from the wound. If there is any drainage she is instructed to keep the wound clean and dry. If there is any drainage she should cover with dry gauze and tape and change every 2-3 days as needed. Cover wound while showering if there is any drainage. Continue with physical therapy. Resume home diet. Report any fever over 101.5 Fahrenheit, uncontrolled pain, increased drainage, foul odor of drainage, new or increased calf pain or shortness of breath, or any other significant complaints. A 325mg dialy aspirin will be started after finishing anticoagulation if not allergic. Continue with JUSTUS hose on the operative extremity until instructed otherwise. No driving until instructed otherwise. Follow up in approximately 10-14 days. Procedures Performed: see notes below List Procedures: Bilateral total knee arthroplasty Discharge Disposition: Home self care Disposition: Home self-care Condition: Good Discharge Activity: Activity as tolerated, Weight bearing Discharge Diet: General/regular food Referrals: Danielle Vazquez ARNP [Primary Care Provider] - Additional Patient Instructions (free text): Follow up in the office with Dr. Duong on 12-14-16 @ 10:45am. Prescriptions (Any new or edited meds): Ferrous Sulfate [Iron] 325 mg PO TID #60 tablet Morphine Sulfate [Ms Contin] 15 mg PO Q12H #10 tablet.sa Rivaroxaban [Xarelto] 10 mg PO DAILY #7 tablet oxyCODONE HCL/ACETAMINOPHEN [Percocet 5 MG/325 MG] 2 tab PO Q4H PRN #90 tablet PRN Reason: Moderate Pain Complete Home Medications List: Complete Home Medication List: Calcium Carbonate/Vitamin D3 [Calcium 600 + Vit D 400 Caplet] 1 each PO DAILY Levothyroxine Sodium [Synthroid] 175 mcg PO DAILY 05/09/12 Trazodone HCl 50 mg PO HS 05/09/12 ALPRAZolam [Xanax] 0.5 mg PO QID PRN 11/14/14 Hydrochlorothiazide 25 mg PO DAILY 03/03/15 FLUoxetine HCL [Prozac] 10 mg PO HS 04/23/15 Aspirin [Aspirin Enteric Coated] 81 mg PO DAILY 11/10/16 Cyanocobalamin [Vitamin B-12] 1,000 mcg IJ Q30D 11/10/16 Krill/Om-3/Dha/Epa/Phospho/Ast [Krill Oil 1,000 mg Softgel] 1 each PO DAILY 04/17 L.acidoph,Paracasei, B.lactis [Probiotic] 2 each PO DAILY 11/10/16 Lisinopril [Zestril] 20 mg PO BID 11/10/16 Metoprolol Tartrate [Lopressor] 50 mg PO BID 11/10/16 Tatum Pulse 1 tab PO DAILY 11/10/16 Ferrous Sulfate [Iron] 325 mg PO TID #60 tablet 12/06/16 Morphine Sulfate [Ms Contin] 15 mg PO Q12H #10 tablet.sa 12/06/16 Rivaroxaban [Xarelto] 10 mg PO DAILY #7 tablet 12/06/16 Sennosides/Docusate Sodium [Senokot-S] 2 tab PO HS #0 tablet 12/06/16 oxyCODONE HCL/ACETAMINOPHEN [Percocet 5 MG/325 MG] 2 tab PO Q4H PRN #90 tablet 12/06/16 Amb Orders for Discharge: PT Evaluation and Treatment Facility: [facility], Location: Rehabilitation Services
== END 2016-12-06 15:31 | disposition home or self-care (01) | DRG 462 ==
LOC: MS 06:12
PROVIDERS: ADMIT Orthopaedic Surgery; ATTEND Orthopaedic Surgery
PROC: 0SRC0J9 Replacement of Right Knee Joint with Synthetic Substitute, Cemented, Open Approach (ICD-10-PCS; principal; 2016-11-29 08:00)
PROC: 0SRD0J9 Replacement of Left Knee Joint with Synthetic Substitute, Cemented, Open Approach (ICD-10-PCS; 2016-12-01)
DX: M17.0 Bilateral primary osteoarthritis of knee (principal); D62 Acute posthemorrhagic anemia; D68.51 Activated protein C resistance; I25.10 Atherosclerotic heart disease of native coronary artery without angina pectoris; E53.8 Deficiency of other specified B group vitamins; I10 Essential (primary) hypertension; E78.5 Hyperlipidemia, unspecified; K21.9 Gastro-esophageal reflux disease without esophagitis; F32.9 Major depressive disorder, single episode, unspecified; I25.2 Old myocardial infarction
CPT/HCPCS: 27447; 36415; 73560; 80048; 85027; 94660; 97110; 97116; 97162; 97164; 97165; 97530; J2405